=== PATIENT | male | born 1955 | race Caucasian/White ===

== ENCOUNTER → 2018-10-27 | Outpatient (CLI) | payer OTHER ==
[2018-10-27 15:19] LABS: MICROSCOPIC NOT IND
[2018-10-27 15:26] LABS: CULTURE INDICATED? NO
[2018-10-27 15:31] LABS: BASOPHILS # (AUTO) 0.03 x10^3/uL (0-0.1); BASOPHILS % (AUTO) 1 % (0-1); EOSINOPHILS # (AUTO) 0.18 x10^3/uL (0-0.4); EOSINOPHILS % (AUTO) 3 % (1-7); LYMPHOCYTES # (AUTO) 1.76 x10^3/uL (1-3.4); LYMPHOCYTES % (AUTO) 32 % (22-44); MD NO; MEAN CORPUSCULAR HEMOGLOBIN 31.5 pg (27.5-34.5); MEAN CORPUSCULAR HGB CONC 33.3 g/dL (33.2-36.2); MEAN CORPUSCULAR VOLUME 94.5 fL (81-97); MEAN PLATELET VOLUME 9.2 fL (7.4-10.4); MONOCYTES # (AUTO) 0.51 x10^3/uL (0.2-0.8); MONOCYTES % (AUTO) 9 % (2-9); NEUTROPHILS # (AUTO) 3.02 x10^3/uL (1.8-6.8); NEUTROPHILS % (AUTO) 55 % (42-75); PLATELET COUNT 255 x10^3/uL (130-400); RED BLOOD COUNT 4.12 x10^6/uL (4.38-5.82); RED CELL DISTRIBUTION WIDTH 13.4 % (9.4-14.8)
[2018-10-27 15:37] LABS: INTERNATIONAL NORMALIZED RATIO 1.02 (0.93-1.1); PROTHROMBIN TIME 10.7 Seconds (9.6-11.5)
[2018-10-27 15:39] LABS: ANION GAP 5 mmol/L (5-15); CALCIUM 8.6 mg/dL (8.5-10.1); CHLORIDE 109 mmol/L (98-107)
[2018-10-27 15:42] LABS: ALANINE AMINOTRANSFERASE 38 U/L (12-78); ALKALINE PHOSPHATASE 73 U/L (45-117); BILIRUBIN,TOTAL 0.2 mg/dL (0.2-1.0); CREATININE 1.04 mg/dL (0.7-1.3); TOTAL PROTEIN 6.7 g/dL (6.4-8.2)
== END | disposition home or self-care (01) ==
LOC: STAR 13:56
PROVIDERS: ATTEND Neurological Surgery
DX: M48.02 Spinal stenosis, cervical region (principal); J43.9 Emphysema, unspecified
CPT/HCPCS: 36415; 71046; 80053; 81003; 85025; 85610; 85730; 93005

== ENCOUNTER 2018-11-10 10:30 | Inpatient (IN) | payer OTHER ==
[~2018-11-10] VITALS: Ht 177.8 cm; Wt 53.9 kg
[~2018-11-10 10:30] MED LIST: BACITRACIN 50,000 UNIT ONE; BUPIVACAINE/EPI 0.5% 1:200K ONE; METH40TA3 PO; THROMBIN 5,000 UNIT VIAL TP ONE; VANCOMYCIN 1,000 MG ONE
[2018-11-10 12:12] VITALS: BP 124/80
[2018-11-10] MEDS ORDERED: LACTATED RINGERS 1,000 ML IV SCH (12:21)
[2018-11-10] MEDS ORDERED: VITAMIN D3 PO (12:22)
[2018-11-10] MEDS ORDERED: IBUPROFEN PO (12:22)
[2018-11-10] MEDS ORDERED: THROMBIN 20,000 UNIT VIAL TP ONE (12:27)
[2018-11-10] MEDS ORDERED: DIAZEPAM 5 MG TABLET PO ONE (12:30)
[2018-11-10] MEDS ORDERED: ACETAMINOPHEN 500 MG TABLET PO ONE (12:30)
[2018-11-10] MEDS ORDERED: OxyconTIN ER 20 MG TAB.ER PO ONE (12:30)
[2018-11-10] MEDS ORDERED: FENTANYL PF 250 MCG/5ML ONE (12:44)
[2018-11-10] MEDS ORDERED: MIDAZOLAM 1 MG/ML, 2ML ONE (12:44)
[2018-11-10] MEDS ORDERED: LIDOCAINE 2%, 6 ML JEL.PF.APP MM ONE (12:46)
[2018-11-10] MEDS ORDERED: PROPOFOL 50 ML ONE ×3 (12:46→15:13)
[2018-11-10] MEDS ORDERED: ROCURONIUM 10 MG/ML,10ML ONE (13:24)
[2018-11-10] MEDS ORDERED: SUCCINYLCHOLINE 20 MG/ML, 10ML ONE (13:24)
[2018-11-10] MEDS ORDERED: ALBUTEROL/IPRATROPIUM 2.5MG/0.5MG, 3 ML NPPB PRN (14:30)
[2018-11-10] MEDS ORDERED: MEPERIDINE/PF 25MG/0.5ML IVPush PRN (14:30)
[2018-11-10] MEDS ORDERED: HYDROmorphone 2 MG/ML, 1ML IVPush PRN (14:30)
[2018-11-10] MEDS ORDERED: OXYcodone 5 MG/5 ML ORAL.SOL UDC PO PRN (14:30)
[2018-11-10] MEDS ORDERED: METOPROLOL 1 MG/ML, 5ML IV PRN (14:30)
[2018-11-10] MEDS ORDERED: DIAZEPAM 5 MG/ML, 2ML IVPush PRN (14:30)
[2018-11-10] MEDS ORDERED: FENTANYL PF 100 MCG/2ML IV PRN (14:30)
[2018-11-10] MEDS ORDERED: PROMETHAZINE 25 MG/ML, 1ML IV PRN (14:30)
[2018-11-10] MEDS ORDERED: hydrALAzine 20 MG/ML, 1ML IV PRN (14:30)
[2018-11-10] MEDS ORDERED: ONDANSETRON 2MG/ML, 2ML IV PRN ×2 (14:30→19:30)
[2018-11-10] MEDS ORDERED: MIDAZOLAM 1 MG/ML, 2ML IV PRN (14:30)
[2018-11-10] MEDS ORDERED: DEXAMETHASONE 4 MG/ML, 1ML ONE (15:54)
[2018-11-10] MEDS ORDERED: PROPOFOL 10 MG/ML, 20ML ONE (15:54)
[2018-11-10] MEDS ORDERED: CEFAZOLIN 1,000 MG ONE (15:54)
[2018-11-10] MEDS ORDERED: ONDANSETRON 2MG/ML, 2ML ONE (15:54)
[2018-11-10] MEDS ORDERED: VANCOMYCIN 1,000 MG ONE (16:19)
[2018-11-10 18:35] VITALS: BP 117/68
[2018-11-10] MEDS ORDERED: DIPHENHYDRAMINE 50 MG CAPSULE PO PRN (19:30)
[2018-11-10] MEDS ORDERED: METHOCARBAMOL 750 MG TABLET PO PRN (19:30)
[2018-11-10] MEDS ORDERED: DIPHENHYDRAMINE 50 MG/ML, 1ML IVPush PRN (19:30)
[2018-11-10] MEDS ORDERED: PROMETHAZINE 25 MG/ML, 1ML IM PRN (19:30)
[2018-11-10] MEDS ORDERED: MAGNESIUM HYDROXIDE 8%, 30ML UDC PO PRN (19:30)
[2018-11-10] MEDS ORDERED: BISACODYL 10 MG SUPP PR PRN (19:30)
[2018-11-10 20:49] VITALS: BP 119/75
[2018-11-10] MEDS ORDERED: INSULIN REGULAR 100 UNITS/ML, 3ML VIAL SQ-INSULIN SCH (21:00)
[2018-11-10] MEDS: CEFAZOLIN PMX 1GM/50ML 50 ML IVPB SCH (21:15)
[2018-11-10] MEDS: D5%-0.9% NACL+KCL 20MEQ 1,000 ML IV SCH (22:02)
[2018-11-10] MEDS: OXYcodone IR 5MG TABLET PO PRN (22:11)
[2018-11-11 00:37] VITALS: BP 123/73
[2018-11-11] MEDS: OXYcodone IR 5MG TABLET PO PRN ×4 (03:36→21:07)
[2018-11-11 04:25] VITALS: BP 114/68
[2018-11-11 05:13] LABS: BASOPHILS # (AUTO) 0.03 x10^3/uL (0-0.1); BASOPHILS % (AUTO) 0 % (0-1); EOSINOPHILS % (AUTO) 0 % (1-7); LYMPHOCYTES # (AUTO) 1.07 x10^3/uL (1-3.4); LYMPHOCYTES % (AUTO) 10 % (22-44); MD NO; MEAN CORPUSCULAR HEMOGLOBIN 31.8 pg (27.5-34.5); MEAN CORPUSCULAR HGB CONC 33.5 g/dL (33.2-36.2); MEAN PLATELET VOLUME 9.2 fL (7.4-10.4); MONOCYTES # (AUTO) 0.98 x10^3/uL (0.2-0.8); MONOCYTES % (AUTO) 9 % (2-9); NEUTROPHILS # (AUTO) 8.49 x10^3/uL (1.8-6.8); NEUTROPHILS % (AUTO) 80 % (42-75); PLATELET COUNT 252 x10^3/uL (130-400); RED CELL DISTRIBUTION WIDTH 13.6 % (9.4-14.8)
[2018-11-11 05:19] LABS: ANION GAP 5 mmol/L (5-15); CALCIUM 8.4 mg/dL (8.5-10.1); CHLORIDE 109 mmol/L (98-107); CREATININE 1.19 mg/dL (0.7-1.3)
[2018-11-11] MEDS: CEFAZOLIN PMX 1GM/50ML 50 ML IVPB SCH (05:30)
[2018-11-11] MEDS: ENOXAPARIN 40 MG/0.4 ML SQ SCH (05:40)
[2018-11-11 07:38] VITALS: BP 127/74
[2018-11-11] MEDS: METHADONE 10 MG TABLET PO SCH (08:42)
[2018-11-11] MEDS: METHOCARBAMOL 1,000 MG in DEXTROSE 5% 100 ML IV SCH ×2 (08:42→16:20)
[2018-11-11] MEDS: SENNA/DOCUSATE TABLET PO SCH (08:47)
[2018-11-11] MEDS: D5%-0.9% NACL+KCL 20MEQ 1,000 ML IV SCH ×2 (08:53→17:24)
[2018-11-11 14:04] VITALS: BP 125/65
[2018-11-11] MEDS: HYDROmorphone 2 MG/ML, 1ML IVPush PRN (18:30)
[2018-11-11 19:40] VITALS: BP 118/70
[2018-11-11] MEDS ORDERED: ALBUTEROL/IPRATROPIUM 2.5MG/0.5MG, 3 ML NPPB PRN (20:00)
[2018-11-12] MEDS: HYDROmorphone 2 MG/ML, 1ML IVPush PRN ×3 (00:01→21:36)
[2018-11-12] MEDS: METHOCARBAMOL 1,000 MG in DEXTROSE 5% 100 ML IV SCH ×2 (00:04→07:41)
[2018-11-12] MEDS: OXYcodone IR 5MG TABLET PO PRN ×5 (02:42→20:53)
[2018-11-12 02:56] VITALS: BP 124/75
[2018-11-12] MEDS: D5%-0.9% NACL+KCL 20MEQ 1,000 ML IV SCH ×2 (04:00→15:00)
[2018-11-12] MEDS: ENOXAPARIN 40 MG/0.4 ML SQ SCH (05:32)
[2018-11-12 07:01] VITALS: BP 134/78
[2018-11-12] MEDS: METHADONE 10 MG TABLET PO SCH (07:35)
[2018-11-12] MEDS: SENNA/DOCUSATE TABLET PO SCH (09:06)
[2018-11-12 12:47] VITALS: BP 138/81
[2018-11-12] MEDS: METHOCARBAMOL 750 MG TABLET PO SCH ×2 (14:36→19:53)
[2018-11-12 19:38] VITALS: BP 127/73
[2018-11-13] VITALS: BP 125/75
[2018-11-13] MEDS: OXYcodone IR 5MG TABLET PO PRN ×5 (00:55→21:29)
[2018-11-13] MEDS: METHOCARBAMOL 750 MG TABLET PO SCH ×5 (00:55→20:51)
[2018-11-13] MEDS: D5%-0.9% NACL+KCL 20MEQ 1,000 ML IV SCH ×3 (01:00→20:49)
[2018-11-13] MEDS: HYDROmorphone 2 MG/ML, 1ML IVPush PRN (04:02)
[2018-11-13] MEDS: ENOXAPARIN 40 MG/0.4 ML SQ SCH (06:27)
[2018-11-13 07:05] VITALS: BP 117/77
[2018-11-13] MEDS: METHADONE 10 MG TABLET PO SCH (08:21)
[2018-11-13] MEDS: SENNA/DOCUSATE TABLET PO SCH (08:23)
[2018-11-13] MEDS ORDERED: NICOTINE 21 MG/24 HR PATCH.TD24 TD ONE (11:30)
[2018-11-13 13:50] VITALS: BP 120/75
[2018-11-13] MEDS: KETOROLAC 30 MG/1 ML IV PRN ×2 (17:56→23:56)
[2018-11-13 19:27] VITALS: BP 105/56
[2018-11-14 00:30] VITALS: BP 94/57
[2018-11-14] MEDS: OXYcodone IR 5MG TABLET PO PRN ×3 (01:34→19:44)
[2018-11-14 01:36] VITALS: BP 109/64
[2018-11-14] MEDS: HYDROmorphone 2 MG/ML, 1ML IVPush PRN (03:31)
[2018-11-14] MEDS: D5%-0.9% NACL+KCL 20MEQ 1,000 ML IV SCH ×2 (04:26→16:03)
[2018-11-14] MEDS: METHOCARBAMOL 750 MG TABLET PO SCH ×4 (06:01→19:44)
[2018-11-14] MEDS: ENOXAPARIN 40 MG/0.4 ML SQ SCH (06:01)
[2018-11-14 06:52] VITALS: BP 116/75
[2018-11-14] MEDS: METHADONE 10 MG TABLET PO SCH (07:51)
[2018-11-14] MEDS: SENNA/DOCUSATE TABLET PO SCH (07:51)
[2018-11-14 12:33] VITALS: BP 123/74
[2018-11-14 18:46] VITALS: BP 119/69
[2018-11-15] MEDS: D5%-0.9% NACL+KCL 20MEQ 1,000 ML IV SCH ×3 (02:02→23:00)
[2018-11-15 02:32] VITALS: BP 106/65
[2018-11-15] MEDS: OXYcodone IR 5MG TABLET PO PRN ×4 (03:16→19:51)
[2018-11-15] MEDS: METHOCARBAMOL 750 MG TABLET PO SCH ×4 (06:15→19:51)
[2018-11-15] MEDS: ENOXAPARIN 40 MG/0.4 ML SQ SCH (06:15)
[2018-11-15 07:11] VITALS: BP 105/67
[2018-11-15] MEDS: SENNA/DOCUSATE TABLET PO SCH (08:15)
[2018-11-15] MEDS: METHADONE 10 MG TABLET PO SCH (08:58)
[2018-11-15] MEDS ORDERED: METH750T87 PO (09:53)
[2018-11-15] MEDS ORDERED: OXYC5TAB2 PO (09:53)
[2018-11-15] MEDS ORDERED: CEPH-368 PO (09:54)
[2018-11-15] MEDS ORDERED: SENN-88 PO (09:56)
[2018-11-15 13:23] VITALS: BP 118/62
[2018-11-15 19:01] VITALS: BP 101/64
[2018-11-16 01:01] VITALS: BP 114/66
[2018-11-16] MEDS: OXYcodone IR 5MG TABLET PO PRN ×5 (01:17→21:07)
[2018-11-16] MEDS: METHOCARBAMOL 750 MG TABLET PO SCH ×4 (05:10→21:07)
[2018-11-16] MEDS: ENOXAPARIN 40 MG/0.4 ML SQ SCH (05:10)
[2018-11-16 06:40] VITALS: BP 98/65
[2018-11-16] MEDS: SENNA/DOCUSATE TABLET PO SCH (07:30)
[2018-11-16] MEDS: METHADONE 10 MG TABLET PO SCH (07:33)
[2018-11-16] MEDS: D5%-0.9% NACL+KCL 20MEQ 1,000 ML IV SCH ×2 (09:00→16:32)
[2018-11-16] MEDS: KETOROLAC 30 MG/1 ML IV PRN ×2 (14:12→22:46)
[2018-11-16 15:00] VITALS: BP 98/64
[2018-11-16 18:31] VITALS: BP 104/64
[2018-11-16 21:05] VITALS: BP 101/59
[2018-11-17 00:44] VITALS: BP 93/63
[2018-11-17] MEDS: OXYcodone IR 5MG TABLET PO PRN ×2 (01:32→12:28)
[2018-11-17] MEDS: D5%-0.9% NACL+KCL 20MEQ 1,000 ML IV SCH (04:50)
[2018-11-17] MEDS: METHOCARBAMOL 750 MG TABLET PO SCH ×2 (06:23→11:26)
[2018-11-17] MEDS: ENOXAPARIN 40 MG/0.4 ML SQ SCH (06:24)
[2018-11-17] MEDS: KETOROLAC 30 MG/1 ML IV PRN (06:34)
[2018-11-17 06:43] VITALS: BP 102/63
[2018-11-17] MEDS: METHADONE 10 MG TABLET PO SCH (08:43)
[2018-11-17] MEDS: SENNA/DOCUSATE TABLET PO SCH (08:43)
[2018-11-17 14:54] VITALS: BP 101/67
== END 2018-11-17 16:00 | disposition home health service (06) | DRG 471 ==
LOC: ORIP 11:46 → 4NOR 18:22 → DCLOUNGE 11-17 15:55
PROVIDERS: ADMIT Neurological Surgery; ATTEND Neurological Surgery
PROC: 0RG4071 Fusion of Cervicothoracic Vertebral Joint with Autologous Tissue Substitute, Posterior Approach, Posterior Column, Open Approach (ICD-10-PCS; 2018-11-10)
PROC: 4A11X4G Monitoring of Peripheral Nervous Electrical Activity, Intraoperative, External Approach (ICD-10-PCS; 2018-11-10)
PROC: 0RG2071 Fusion of 2 or more Cervical Vertebral Joints with Autologous Tissue Substitute, Posterior Approach, Posterior Column, Open Approach (ICD-10-PCS; principal; 2018-11-10 15:30)
DX: M48.03 Spinal stenosis, cervicothoracic region (principal); E43 Unspecified severe protein-calorie malnutrition; M50.03 Cervical disc disorder with myelopathy, cervicothoracic region; M47.13 Other spondylosis with myelopathy, cervicothoracic region; M50.01 Cervical disc disorder with myelopathy, high cervical region; J96.10 Chronic respiratory failure, unspecified whether with hypoxia or hypercapnia; Z68.1 Body mass index [BMI] 19.9 or less, adult; M43.13 Spondylolisthesis, cervicothoracic region; G89.29 Other chronic pain; F10.10 Alcohol abuse, uncomplicated; Y90.9 Presence of alcohol in blood, level not specified; R56.9 Unspecified convulsions; M48.061 Spinal stenosis, lumbar region without neurogenic claudication; J43.9 Emphysema, unspecified; Z88.1 Allergy status to other antibiotic agents
CPT/HCPCS: 36415; 72040; J7620; 80048; 85025; 86850; 86900; 94640; C1713; G0378; J0690; J1100; J1170; J1650; J1885; J2250; J2405; J2704; J3010; J3370; C1763; J0330; J2800; J7120